=== PATIENT | female | born 1980 | race Caucasian/White ===

== ENCOUNTER 2018-10-31 08:37 | Emergency (ER) | payer SELFPAY ==
[2018-10-31 09:12] LABS: URINE PH (Dip) POC 5.5 (5.0-8.5)
[2018-10-31 09:12] LABS: URINE BLOOD (Dip) POC 2+ (NEGATIVE); URINE GLUCOSE (Dip) POC Negative (NEGATIVE); URINE KETONES (Dip) POC Negative (NEGATIVE); URINE LEUKOCYTE EST (Dip) POC 2+ (NEGATIVE); URINE NITRITE (Dip) POC Negative (NEGATIVE); URINE TOTAL PROTEIN POC 1+ (NEGATIVE)
== END 2018-10-31 09:41 | disposition home or self-care (01) ==
LOC: FTE 08:37
DX: N39.0 Urinary tract infection, site not specified (principal); R10.2 Pelvic and perineal pain
CPT/HCPCS: 81003; 81025; 99283